=== PATIENT | male | born 1975 | race Caucasian/White ===

== ENCOUNTER 2020-10-15 10:30 | Outpatient (CLI) | payer OTHER, SELFPAY ==
[2020-10-15 11:11] LABS: Liquefaction Semen Complete in 30 min. (<30 minutes); Semen Color Opaque (Grey-opaque); Semen Immotility 0 %; Semen Non-Progressive Motility 0 %; Semen Progressive Motility 0 % (>32); Semen Total Motility 0 (>40% (PM+NP)); Semen Viscosity Not Increased (Not Increa.); Sperm Count 0 Mil/mL (60-150 million/mL); Volume Semen 5 mL (1.5-5.0)
[2020-10-15 11:12] LABS: Semen Morphology Result to Follow
[2020-10-21 13:57] LABS: Fructose, Semen 263 mg/dL (150-600)
== END 2020-10-15 10:31 | disposition home or self-care (01) ==
LOC: CHSLAB 10:35
PROVIDERS: PCP Family Medicine; Visit Provider Family Medicine
DX: Z31.0 Encounter for reversal of previous sterilization (principal)
CPT/HCPCS: 82757; 88160; 89320

== ENCOUNTER 2021-05-22 08:04 | Outpatient (CLI) | payer OTHER, SELFPAY ==
[2021-05-22 08:26] LABS: Semen Viscosity NOT INCREASED (Not Increa.); Volume Semen 4.5 mL (1.5-5.0)
[2021-05-22 08:27] LABS: Liquefaction Semen Complete in 30 min. (<30 minutes); Semen Color Opaque (Grey-opaque); Semen Immotility 0 %; Semen Morphology Result to Follow; Semen Non-Progressive Motility 0 %; Semen Progressive Motility 0 % (>32); Semen Total Motility 0 (>40% (PM+NP)); Sperm Count 0 Mil/mL (60-150 million/mL); pH Semen 8.5 (7.2-8.0)
[2021-05-25 22:18] LABS: Fructose, Semen 254 mg/dL (150-600)
== END 2021-05-22 08:05 | disposition home or self-care (01) ==
LOC: CHSLAB 08:09
PROVIDERS: PCP Family Medicine
DX: Z31.42 Aftercare following sterilization reversal (principal)
CPT/HCPCS: 82757; 88160; 89320